=== PATIENT | male | born 1995 | race Asian ===

== ENCOUNTER 2017-12-19 17:07 | Emergency (ER) | payer MEDICAID, SELFPAY ==
[2017-12-19 17:07] VITALS: BP 143/95; PULSE 89; RESP 18; TEMP 37.3; O2SAT 98; BMI 24.9
[2017-12-19] MEDS: Ondansetron 4 MG/2 ML Vial IV (17:58)
[2017-12-19] MEDS: Ketorolac 30 MG/ML Syringe IV (17:58)
[2017-12-19] MEDS: 0.9% Normal Saline 1,000 ML 1000 ML IV (17:58)
[2017-12-19 18:13] LABS: Absolute Lymphocyte Count 1.17 X10^3/ul (0.83-4.51); Absolute Neutrophil Count 6.6 X10^3/uL (2.0-7.7); Basophil# 0.03 X10^3/uL; Basophil% 0.3 % (0-1); Eosinophil# 0.05 X10^3/uL; Eosinophils% 0.6 % (0-5); Hematocrit 45.7 % (40-54); Hemoglobin 16.2 g/dl (13.0-16.5); Lymphocyte # 1.17 X10^3/ul (4.0); Lymphocyte % 13.3 % (19-41); Mean Corp Hgb Conc 35.4 g/gl (32-36); Mean Corpuscular Hgb 31.7 pg (27.0-32.0); Mean Corpuscular Volume 89.4 fL (80-94); Monocyte# 0.93 X10^3/uL; Monocyte% 10.6 % (0-10); Neutrophil # 6.59 X10^3/uL (2.7-7.7); Neutrophil % 74.9 % (47-70); Platelet Count 272 K/mm3 (150-450); RBC Distribution Width CV 12.6 % (11.6-14.6); RBC Distribution Width SD 40.9 fl (35.1-43.9); Red Blood Count 5.11 M/mm3 (4.6-6.2); White Blood Count 8.8 K/mm3 (4.4-11.0)
[2017-12-19 18:14] LABS: POSITIVE COUNT NO; POSITIVE DIFFERENTIAL NO; POSITIVE MORPHOLOGY NO
[2017-12-19 18:26] LABS: AST(SGOT) 18 U/L (15-37); Alanine Aminotransfer ALT/SGPT 35 U/L (16-61); Albumin, Serum 4.1 g/dL (3.2-5.0); Alkaline Phosphatase 77 U/L (45-117); Anion Gap 8 (5-15); BUN 13 mg/dL (7-18); BUN/Creat Ratio 14.2 RATIO (10-20); Bilirubin, Direct 0.21 mg/dL (0.00-0.30); Calcium,Total 9.2 mg/dL (8.5-10.1); Chloride 104 mmol/L (98-107); Creatinine, Serum 0.91 mg/dL (0.70-1.30); EST Glomerular Filtration Rate 111 mL/min (>60); Est Glom Filt Rate - Afr Amer 134 mL/min (>60); Estimated Creatinine Clearance 145.12 ml/min; Globulin 3.9 g/dL (2.2-4.2); Glucose 93 mg/dL (74-106); Lipase 81 U/L (73-393); Potassium 3.6 mmol/L (3.5-5.1); Sodium Level 139 mmol/L (136-145)
--- NOTE | 2017-12-19 18:34 | ED.DCSUM_ITS ---
- ER Visit Summary Date of Service: 12/19/17 Chief Complaint: Vomiting and diarrhea History of Present Illness: The patient is a [address] Zëo park. He reports that he has been nauseated and vomited approximate 5 times. No blood in his emesis. He has had 2-3 episodes of diarrhea a day for the past 4 days. No blood in his stools. He has abdominal pain 7-10 is increased with eating. Patient reports he has not slept well for the past 4 days. 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 He states that typically he would drink Friday to Friday approximately half 1/5 each time. Reports his last drink was 4 days ago. He has never had withdrawal symptoms before. He also reports that he smoked marijuana 3 times a day and stop this 4 days ago. Physical Examination: Vitals: Stable. Afebrile. General: Well-nourished and well-developed. Head: Normocephalic atraumatic. Neck: Supple, no lymphadenopathy. No JVD. Nontender. Cardiovascular: Regular rate and rhythm. No murmurs. Respiratory: No respiratory distress. Clear to auscultation bilaterally. Abdominal: Soft, nontender, nondistended, normal bowel sounds. No guarding, rebound, or peritoneal signs. Back: Nontender. Extremities: Nontender, no edema. Skin: Normal color, no rash. Neurologic: Alert and oriented ?3. Cranial nerves II through XII are intact. Normal strength and sensation. Psych: Normal affect. Test Results: CBC is more for 7 neutrophils 75 lymphs lites of 13. Chem-7 is normal. LFTs normal. Lipase is normal. Emergency Department Course and Treatment: Patient was given a dose of Toradol and Zofran IV. He is resting comfortably. Treatment Plan: Had a prolonged discussion the patient that his symptoms of poor sleep and appetite are likely a sequela of stopping smoking marijuana. He will be placed on Zofran. Try to push fluids. Follow-up his primary care physician in 3-5 days if not improving. Return to the emergency department for any worsening symptoms. Disposition: To home in improved and stable condition. Impression: 1. Vomiting/diarrhea. This note was generated with [employer] dictation software. It may contain incorrect words, spelling, and punctuation that were not noted in review of the chart prior to signing ED Disposition - Plan for ED Patient: Disposition: Home or Assisted Living Chief Complaint: Substance Abuse Instructions: ED Vomiting Diarrhea Nonspecific Ad Prescriptions: Ondansetron [Zofran Odt] 4 mg PO Q8H PRN PRN #10 tablet PRN Reason: Nausea Referrals: Darinel Mayes MD [NON-STAFF] - 3-5 Days if not improving
[2017-12-19 18:45] VITALS: BP 127/71; PULSE 62; RESP 18; O2SAT 98
== END 2017-12-19 18:46 | disposition home or self-care (01) ==
PROVIDERS: Emergency Provider Emergency Medicine; Family Provider Pediatrics; PCP Pediatrics
DX: R11.2 Nausea with vomiting, unspecified (principal); R19.7 Diarrhea, unspecified; F12.11 Cannabis abuse, in remission; Z72.89 Other problems related to lifestyle
CPT/HCPCS: 80048; 80076; 83690; 85025; 96361; 96374; 96375; 99283; J7030; J2405

== ENCOUNTER 2018-09-18 05:20 | Emergency (ER) | payer MEDICAID, SELFPAY ==
[2018-09-18 05:20] VITALS: BP 137/75; PULSE 102; RESP 19; O2SAT 100
[2018-09-18 05:21] VITALS: BP 137/75; PULSE 95; RESP 17; TEMP 36.8; O2SAT 98; BMI 26.2
[2018-09-18 05:24] VITALS: O2SAT 98
[2018-09-18 05:28] VITALS: TEMP 36.8
--- NOTE | 2018-09-18 05:30 | ED.RN ---
PT WANTS AN IV TO GET FLUIDS, MADE AWARE. DR. BEE HAS NO FURTHER ORDERS AT THIS TIME, WILL CONTINUE TO MONITOR THE PT.
--- NOTE | 2018-09-18 05:31 | ED.DCSUM_ITS ---
- ER Visit Summary Date of Service: 09/18/18 Chief Complaint: Short of breath, myalgias History of Present Illness: The patient is a 23 M who is been sick for about 2 weeks. He reports subjective fevers, congestion, rhinorrhea, cough, muscle and joint aches. He feels short of breath. No nausea vomiting or diarrhea. He was seen by his physician 2 to 3 days ago and diagnosed with a sinus infection. Patient was given a prescription for Augmentin and prednisone. Physical Examination: Afebrile vitals are normal No distress Heart regular rate and rhythm Lungs are clear no rales rhonchi or wheezing Abdomen soft Alert Test Results: Not indicated Emergency Department Course and Treatment: Patient's presentation is consistent with bronchitis. Medical suspicion for pneumonia is low given normal vitals and clear lungs and he was already recently started on Augmentin regardless which would cover community-acquired pneumonia. Therefore I do not feel imaging is necessary at this time. He does not clinically appear dehydrated. He is clinically well-appearing with normal vitals. His lungs are clear. He was advised on supportive care. Patient was discharged. Treatment Plan: [] Disposition: Discharge Impression: Bronchitis This note was generated with [employer] dictation software. It may contain incorrect words, spelling, and punctuation that were not noted in review of the chart prior to signing ED Disposition - Plan for ED Patient: Referrals: Luciana Gonzales MD [Primary Care Provider] -
--- NOTE | 2018-09-18 05:31 | ED.DEP ---
ED Disposition - Plan for ED Patient: Instructions: Acute Bronchitis Referrals: Luciana Gonzales MD [Primary Care Provider] -
[2018-09-18 05:39] VITALS: BP 137/75; PULSE 98; RESP 17; TEMP 36.8; O2SAT 100
== END 2018-09-18 05:41 | disposition home or self-care (01) ==
LOC: ED 05:39
PROVIDERS: Emergency Provider Emergency Medicine; Family Provider Pediatrics; PCP Pediatrics
DX: J40 Bronchitis, not specified as acute or chronic (principal); K21.9 Gastro-esophageal reflux disease without esophagitis
CPT/HCPCS: 99282

== ENCOUNTER → 2020-02-02 12:30 | Outpatient (CLI) | payer MEDICAID, SELFPAY | PROVIDERS: PCP Family Medicine; Referring Provider Nurse Practitioner Primary Care; Visit Provider Nurse Practitioner Primary Care | DX: Z03.818 Encounter for observation for suspected exposure to other biological agents ruled out (principal) | CPT/HCPCS: 87635; C9803; U0003 ==

== ENCOUNTER 2021-07-05 21:20 | Observation (INO) | payer BC, MEDICAID, SELFPAY ==
[2021-07-05 21:21] VITALS: BP 141/94; PULSE 87; RESP 18; TEMP 36.6; O2SAT 97; BMI 22.4
--- NOTE | 2021-07-05 21:32 | EDS_ITS ---
HPI HPI - GI History of Present Illness Chief Complaint: Nausea/Vomiting/Diarrhea Detail of Chief Complaint: Abdominal pain with nausea, vomiting diarrhea that started today Informant: patient and family Abdominal Pain/Flank Pain Onset: Today Context: Sudden Onset Timing: Continuous and Waxes and wanes Quality: Aching and Cramping Location: Diffuse Current Severity: Mild Maximum Severity: Severe Worsened by: - (Vomiting and diarrhea) Relieved by: Nothing Nausea/Vomiting/Emesis GI Symptom: Positive for Nausea and Vomiting Onset: Today Quality: Negative for Blood streaks, Coffee ground and Hematemesis Episodes: 10 Diarrhea/Melena/Hematochezia GI Symptom: Positive for Diarrhea; Negative for Melena and Hematochezia Onset: Today Stool Quality: Positive for Watery and Mucous Severity: Severe Episodes: 9 Associated Symptoms Associated Symptoms: Negative for Dysuria, Frequency, Hematuria and Urgency Narrative Narrative: Patient is 25-year-old male who has history of IBS who presents with diffuse abdominal pain with nausea, vomiting diarrhea that started today. He has vomited more than 10 times. He has not noted blood or coffee-ground emesis. He has had 9 loose watery stools with significant mount of mucus without blood. He states this is different than when he has a IBS flare. There is no family history of Crohn's or ulcerative colitis. He has not been on antibiotics in the past month. He returned from [place] on Friday. No one else that went with him is ill. He denies fever or chills. He does report feeling cold. He denies headache, visual, ocular auditory symptoms. He denies cardiac or respiratory symptoms. He does endorse dry mouth, thirst but denies light headedness. Prior similar symptoms: No Recent Illness/Hospitalization: No PFSH PFS Medical History (Updated 07/05/21 @ 23:[address] Yves Loco MD) Irritable bowel syndrome Medical History no medical history Home Medications Omeprazole [Prilosec] 40 mg PO BID #60 capsule 03/29/16 [Rx Last Taken Unknown] dicyclomine 10 mg PO PRN PRN 12/19/17 [History Last Taken Unknown] ondansetron 4 mg PO Q8H PRN PRN #10 tab 12/19/17 [Rx Last Taken Unknown] Allergy/AdvReac Type Severity Reaction Status Date / Time cephalexin monohydrate Allergy Unknown Verified 07/05/21 21:23 [From Keflex] Surgical History no surgical history no surgical history Social History (Updated 07/05/21 @ 21:[address] Yves Loco MD) household members: family Smoking Status: Never smoker alcohol intake: never substance use type: does not use ROS ROS ED Constitutional Constitutional ED: Denies chills, fever(s), subjective, sweats or weight loss ENT ENT ED: Denies ear pain, rhinorrhea or sore throat Cardiovascular Cardiovascular: Denies chest pain or palpitations Respiratory/Chest Respiratory/Chest: Denies cough, dyspnea or dyspnea on exertion Gastrointestinal Gastrointestinal: Reports abdominal pain, diarrhea, nausea and vomiting; Denies constipation or melena Genitourinary Genitourinary ED: Denies dysuria, hematuria or urinary frequency Musculoskeletal Musculoskeletal: Denies arthralgias, back pain, myalgias or neck pain Integumentary Denies abscess, Abrasions or rash Neurologic Neurologic: Reports weakness; Denies headache(s) or paresthesias Endocrine Endocrinology: Denies polydipsia, polyphagia or polyuria Hematologic/Lymphatic Hematologic/Lymphatic: Denies anemia, easy bleeding or easy bruising EXAM Physical Exam Const Vital Signs: 07/05/21 21:21 Temperature 97.8 F Temperature Source Temporal Pulse Rate 87 Respiratory Rate 18 Blood Pressure 141/94 H Blood Pressure Mean 109 Pulse Ox 97 Oxygen Delivery Method Room Air Positive well nourished and well developed General Appearance ED: well developed, pallor and other Patient appears ill and pale. ; Negative for NAD HEENT Reports TM's clear and dry mucous membranes HEENT Narrative: Uvula midline. No exudate or erythema the posterior pharynx. normocephalic and atraumatic Tympanic Membrane ED: Yes TM's clear Mouth ED: Yes dry mucous membranes Mouth: dry mucous membranes Eyes PERRL and EOMs intact bilaterally General Eye ED: Negative for pale conjunctiva or scleral icterus Neck no lymphadenopathy, supple and no JVD Resp normal respiratory effort and clear to auscultation bilaterally Cardio regular rate, regular rhythm, S1 normal heart sound, S2 normal heart sound and no murmurs GI no masses; Negative for non-tender or non-distended Inspection: abdominal distention Auscultation: hypoactive bowel sounds; Negative for normoactive bowel sounds or hyperactive bowel sounds Palpation: soft and tender other (Minimal in all quadrants.); Negative for guarding, rigid, hepatomegaly, splenomegaly, mass, pulsatile mass or rebound tenderness present Back/Spine no CVA tenderness Lumbar Spine / Lower Back: Negative for lumbar spinal tenderness Extremity full ROM General Extremety ED: Negative for edema or tenderness General Extremity: Negative for edema Neuro CN's II-XII intact bilaterally and no sensory deficits noted Sensorium / Orientation: alert, oriented to person, oriented to place and oriented to time Motor Exam: strength 5/5 throughout Psych mental status grossly normal and thought process normal Skin no wounds General Skin Exam: pallor; Negative for jaundice Lesions: no lesions Rashes: no rashes MDM MDM MDM Narrative Medical decision making narrative: With complaints of nausea, vomiting and diarrhea suspect patient has a viral gastroenteritis. Clinically he appears dehydrated. 1 L of normal saline was ordered. BMP to assess renal function, anion gap and electrolytes, specifically potassium. Zofran was ordered for his nausea vomiting. Dicyclomine for his cramping pain and Imodium for his diarrhea. I was informed the patient use the restroom and had vomiting and diarrhea. Additional dose of Imodium was ordered and antiemetic. Patient received Reglan and morphine for his pain. Patient is actively vomiting complaining of severe pain. Patient's history and physical exam is consistent with gastroenteritis. Since he is continue to vomit will administer Haldol and Benadryl and hospitalist has been paged for 23-hour observation for intractable nausea, vomiting and diarrhea. Lab Data Attestation: I reviewed the patient's lab results. Lab results narrative: Blood sugar slightly elevated. Potassium is normal. CO2 and anion gap is normal. Labs: Laboratory Results - last 24 hr 07/05/21 21:37 Sodium 138 Potassium 4.0 Chloride 104 Carbon Dioxide 27.0 Anion Gap 7 BUN 16 Creatinine 0.98 Estim Creat Clear Calc 123.04 Est GFR (MDRD) Af Amer 120 Est GFR (MDRD) Non-Af 99 BUN/Creatinine Ratio 16.3 Glucose 149 H Calcium 9.9 Discharge Plan Triage Chief Complaint: Nausea/Vomiting/Diarrhea ED Provider: Yves Loco Dx/Rx/DC Orders Clinical Impression: Intractable vomiting with nausea, Diarrhea, Acute generalized abdominal pain, Acute hyperglycemia Prescriptions: No Action Omeprazole [Prilosec] 40 MG capsule 40 mg PO BID Qty: 60 RF: 0 dicyclomine 10 MG capsule 10 mg PO PRN PRN (Reason: Nausea) RF: 0 ondansetron 4 MG tablet 4 mg PO Q8H PRN PRN (Reason: Nausea) Qty: 10 RF: 0 Primary Care Provider: Darinel Mayes Referrals: Darinel Mayes MD [Primary Care Provider] - Disposition Disposition: Acute Care [facility]
[2021-07-05] MEDS: Dicyclomine 20 MG/2 ML Vial IM (21:46)
[2021-07-05] MEDS: Ondansetron 4 MG/2 ML Vial IV (21:46)
[2021-07-05] MEDS: 0.9% Normal Saline 1,000 ML 1000 ML IV (21:46)
[2021-07-05 22:28] LABS: Anion Gap 7 (5-15); BUN 16 mg/dL (7-18); BUN/Creat Ratio 16.3 RATIO (10-20); Calcium,Total 9.9 mg/dL (8.5-10.1); Chloride 104 mmol/L (98-107); Creatinine, Serum 0.98 mg/dL (0.70-1.30); EST Glomerular Filtration Rate 99 mL/min (>60); Est Glom Filt Rate - Afr Amer 120 mL/min (>60); Estimated Creatinine Clearance 123.04 ml/min; Glucose 149 mg/dL (74-106); Sodium Level 138 mmol/L (136-145)
[2021-07-05] MEDS: Metoclopramide 10 MG/2 ML Vial 5 MG IV (22:55)
[2021-07-05] MEDS: Morphine 4 MG/ML Syringe IV (23:09)
[2021-07-05] MEDS: DiphenhydrAMINE 50 MG/ML Syringe 25 MG IV (23:50)
[2021-07-05] MEDS: Haloperidol Lactate 5 MG/ML Vial 2 MG IV (23:50)
--- NOTE | 2021-07-05 23:50 | PCM.HP.STD ---
HPI - General General Date of Admission: 07/05/21 Date of Service: 07/05/21 Chief Complaint: Intractable N/V/D, abdominal cramping. HPI Narrative The patient is a 25 y/o M w/ PMHx: IBS, Intermittent Cannabis usage who presents to the [facility] ED on 07/05/21 with history of onset nausea, emesis (> 10 episodes), loose water stools (> 10 episodes) starting ~ 6-12 hours prior to ED arrival with associated generalized abdominal cramping, pain waxing and waning in waves with recent return from [place] Friday where he was with family with denied ill contacts from all recently present but again very short time window. Patient in the ED does report some mild dyspnea sensation but no recent cough, headache, fevers or chills. He does not appear short of breath but did discuss that this certainly could be because of the severity of his nausea and presentation but to be cautious noted plan for chest x-ray and Covid testing. Patient is not vaccinated against COVID. Work-up in the ED included T 97.6, heart rate 95, BP 128/69, respiratory rate 16, 100% on room air, BMP with glucose 149 otherwise not marked appearing, requested CBC and procalcitonin which will be obtained as had not been performed while patient was in the ED. In the ED patient administered a significant series of medications including Zofran, morphine, Reglan, Imodium, Haldol, diphenhydramine, Bentyl and a 1 L normal saline bolus. [facility] Medical History (Updated 07/06/21 @ 00:[address] Glenis Velazquez MD) Cannabis use disorder, mild, abuse Irritable bowel syndrome Medical History no medical history Home Medications Omeprazole [Prilosec] 40 mg PO BID #60 capsule 03/29/16 [Rx Last Taken Unknown] dicyclomine 10 mg PO PRN PRN 12/19/17 [History Last Taken Unknown] ondansetron 4 mg PO Q8H PRN PRN #10 tab 12/19/17 [Rx Last Taken Unknown] Allergy/AdvReac Type Severity Reaction Status Date / Time cephalexin monohydrate Allergy Unknown Verified 07/05/21 21:23 [From Keflex] Family History (Updated 07/06/21 @ 00:[address] Glenis Velazquez MD) Father Heart disease Myocardial infarction other (Patient denies any marked maternal family history including HD, DM, CA.) Surgical History (Updated 07/06/21 @ 00:[address] Glenis Velazquez MD) No history of previous surgery Surgical History no surgical history Social History (Updated 07/06/21 @ 00:[address] Glenis Velazquez MD) household members: family Smoking Status: Never smoker alcohol intake: never substance use type: marijuana ROS ROS Narrative Admission Review of Systems: CONSTITUTIONAL: No weight loss, fever, chills, + weakness or fatigue. HEENT: Eyes: No visual loss, blurred vision, double vision or yellow sclerae. Ears, Nose, Throat: No hearing loss, sneezing, congestion, runny nose or sore throat. SKIN: No rash or itching, lesions, wounds. CARDIOVASCULAR: No chest pain, chest pressure or chest discomfort, palpitations, edema, orthopnea, syncopal events. RESPIRATORY: + Shortness of breath, No cough or sputum, wheezing, hemoptysis. GASTROINTESTINAL: + Anorexia, nausea, vomiting, diarrhea, abdominal pain, No melena, BRBPR. GENITOURINARY: No dysuria, frequency, urgency or retention. NEUROLOGICAL: No headache, dizziness, syncope, paralysis, ataxia, numbness or tingling in the extremities, focal weakness, change in bowel or bladder control, seizure. MUSCULOSKELETAL: No muscle, back pain, joint pain or stiffness. HEMATOLOGIC: No anemia, bleeding or bruising. LYMPHATICS: No enlarged nodes. No history of splenectomy. PSYCHIATRIC: No history of depression or anxiety. ENDOCRINOLOGIC: No reports of sweating, cold or heat intolerance. No polyuria or polydipsia. ALLERGIES: No history of asthma, hives, eczema or rhinitis. Vital Signs Vital Signs Vital Signs: 07/05/21 21:21 Temperature 97.8 F Temperature Source Temporal Pulse Rate 87 Respiratory Rate 18 Blood Pressure 141/94 H Blood Pressure Mean 109 Pulse Ox 97 Oxygen Delivery Method Room Air Weight Weight: 165 lb Body Mass Index (BMI) 22.4 Physical Exam Narrative Physical Examination: General: Awake, alert, oriented x 3 and cooperative, seated upright in the ED bed, fatigued and ill-appearing. Skin: Normal color, normal turgor, no icterus, no cyanosis. HEENT: AT/NC, EOMI, PERRLA, moderately dry MM, no carotid bruits or JVD noted. Lungs: Diminished, greater bases, decreased effort, no rales, ronchi or wheezing. Heart: Currently regular rate and rhythm; no gallop, rub audible. Abdomen: Soft, NTTP during evaluation however following he notes abdominal cramping worsened, no marked distention, hypoactive bowel sounds, no obvious HSM. Extremities: No cyanosis, clubbing, or edema. Neurological: Patient awake, alert, oriented as noted, cognitive function intact; pupils equally reactive to light and accommodation, cranial nerves II-XII grossly normal, moving all 4 extremities, no focal deficits, strength moderately global decrease secondary to acute presentation. Psychiatric: Affect appears fatigued, ill-appearing, no acute evidence of depressive or anxiety feelings. Results Lab / Micro Data Result Diagrams: 07/05/21 21:37 07/05/21 21:37 Labs: Laboratory Results - last 24 hr 07/05/21 21:37: Sodium 138, Potassium 4.0, Chloride 104, Carbon Dioxide 27.0, Anion Gap 7, BUN 16, Creatinine 0.98, Estim Creat Clear Calc 123.04, Est GFR (MDRD) Af Amer 120, Est GFR (MDRD) Non-Af 99, BUN/Creatinine Ratio 16.3, Glucose 149 H, Calcium 9.9 Assessment & Plan Assessment/Plan (1) Intractable vomiting with nausea: (2) Diarrhea: QUALIFIERS: Diarrhea type: unspecified type Qualified Code(s): R19.7 - Diarrhea, unspecified (3) Acute generalized abdominal pain: PLAN: The patient is a 25 y/o M w/ PMHx: IBS, Intermittent Cannabis usage who presents to the [facility] ED on 07/05/21 with history of onset nausea, emesis (> 10 episodes), loose water stools (> 10 episodes) starting ~ 6-12 hours prior to ED arrival with associated generalized abdominal cramping, pain waxing and waning in waves with recent return from [place] Friday where he was with family with denied ill contacts from all recently present but again very short time window. #1. N/V/D, abdominal cramping potentially secondary to Acute gastroenteritis, unclear specific etiology complicated by history of IBS: We will admit to medical surgical floor, requested CBC and procalcitonin upon presentation, chest x-ray additionally pending given dyspnea complaints as well as Covid testing, continue aggressive hydration, will obtain c diff, stool cx, O+P if recurrent stools although patient was administered Imodium in the ED, will not start antibiotics at this time given unclear source pending stool studies as may be viral gastroenteritis. Anti-emetics, pain regimen PRN. Will maintain n.p.o. status except sips of water with medications until improving. Will maintain on IV PPI. #2. Hyperglycemia: Admission glucose notably elevated 149, hemoglobin A1c requested be cautious although do suspect potentially secondary to stress response. If patient hemoglobin A1c is elevated this certainly could also be causing #1. #3. Intermittent cannabis usage: UDS has been requested, given diarrhea and abdominal cramping low suspicion that this is cyclic vomiting syndrome. #4. GERD: We will maintain on IV PPI as noted. #5. DVT prophylaxis: Low risk, encourage ambulation. Charges/Coding Visit Charges OBSV E&M: 74952 Initial observation care L2
[2021-07-06 00:17] VITALS: BP 128/69; PULSE 95; RESP 16; TEMP 36.4; O2SAT 100
--- NOTE | 2021-07-06 00:30 | RAD_ITS ---
HISTORY: shortness of breath EXAMINATION/TECHNIQUE: XR Chest 1 View AP view COMPARISON: Two-view chest x-ray from 05/06/15 FINDINGS: LINES/DEVICES: None. LUNGS: No focal airspace consolidation. No pulmonary edema. No pleural effusion. No pneumothorax. MEDIASTINUM AND CARDIOVASCULAR STRUCTURES: Cardiac silhouette not enlarged. Central airways and mediastinal contour are unremarkable. BONES AND SOFT TISSUES: No acute findings. RAD/Chest 1 View (Portable) IMPRESSION: No radiographic evidence of acute cardiopulmonary disease. at 0058 Reported and signed by: Nicholas Linares MD Electronically Signed: Nicholas Linares MD at 0:57 EST ,
[2021-07-06 00:47] LABS: Procalcitonin 0.12 ng/mL (0.00-0.09)
[2021-07-06 01:03] LABS: Absolute Lymphocyte Count 0.75 X10^3/uL (0.83-4.51); Basophil# 0.03 X10^3/uL; Basophil% 0.3 % (0-1); Eosinophil# 0.27 X10^3/uL; Eosinophils% 2.6 % (0-5); Hematocrit 50.3 % (40-54); Hemoglobin 16.9 g/dL (13.0-16.5); Lymphocyte # 0.75 X10^3/ul (0.83-4.51); Lymphocyte % 7.1 % (19-41); Mean Corp Hgb Conc 33.6 g/dL (32-36); Mean Corpuscular Hgb 29.6 pg (27.0-32.0); Mean Corpuscular Volume 88.1 fL (80-94); Mean Platelet Vol. 9.9 fl (6.2-12.0); Monocyte# 0.48 X10^3/uL; Monocyte% 4.5 % (0-10); NRBC Flagged by Analyzer 0 % (0-5); Neutrophil % 85.3 % (47-70); Platelet Count 292 K/mm3 (150-450); RBC Distribution Width CV 12.2 % (11.6-14.6); RBC Distribution Width SD 39.3 fl (35.1-43.9); Red Blood Count 5.71 M/mm3 (4.6-6.2); White Blood Count 10.6 K/mm3 (4.4-11.0)
[2021-07-06 01:24] VITALS: BP 114/78; PULSE 58; RESP 16; TEMP 36.7; O2SAT 100
[2021-07-06 01:27] VITALS: BMI 22.9
[2021-07-06] MEDS: 0.9% Normal Saline 1,000 ML 150 ML IV ×2 (01:37→11:18)
[2021-07-06 05:55] VITALS: BP 131/73; PULSE 88; RESP 16; TEMP 37.1; O2SAT 95
[2021-07-06 06:21] LABS: Amphetamine Urine VISTA NEGATIVE (<1000 ng/mL); Barbiturate Urine VISTA NEGATIVE (< 200 ng/mL); Benzodiazepine Urine VISTA NEGATIVE (< 200 ng/mL); Cocaine Urine VISTA NEGATIVE (< 300 ng/mL); Ecstacy Urine VISTA NEGATIVE (< 500 ng/mL); Methadone Urine VISTA NEGATIVE (< 300 ng/mL); PCP Urine VISTA NEGATIVE (< 25 ng/mL); THC Urine VISTA POSITIVE (< 50 ng/mL); Vista UDS pH Range 7
[2021-07-06 06:24] LABS: Absolute Lymphocyte Count 0.36 X10^3/uL (0.83-4.51); Basophil# 0.02 X10^3/uL; Basophil% 0.2 % (0-1); Eosinophil# 0.02 X10^3/uL; Eosinophils% 0.2 % (0-5); Hematocrit 43.8 % (40-54); Hemoglobin 14.8 g/dL (13.0-16.5); Lymphocyte # 0.36 X10^3/ul (0.83-4.51); Lymphocyte % 3.7 % (19-41); Mean Corp Hgb Conc 33.8 g/dL (32-36); Mean Corpuscular Hgb 29.1 pg (27.0-32.0); Mean Corpuscular Volume 86.1 fL (80-94); Monocyte# 0.35 X10^3/uL; Monocyte% 3.6 % (0-10); NRBC Flagged by Analyzer 0 % (0-5); Neutrophil % 92.1 % (47-70); POSITIVE DIFFERENTIAL YES; Platelet Count 232 K/mm3 (150-450); RBC Distribution Width CV 12.1 % (11.6-14.6); Red Blood Count 5.09 M/mm3 (4.6-6.2); White Blood Count 9.8 K/mm3 (4.4-11.0)
[2021-07-06 06:29] LABS: Differential Indicated SCAN CRITERIA MET
[2021-07-06 06:57] LABS: ALB/GLOB Ratio 1.3 RATIO (0.9-2.4); AST(SGOT) 13 U/L (15-37); Alanine Aminotransfer ALT/SGPT 24 U/L (16-61); Albumin, Serum 3.7 g/dL (3.2-5.0); Alkaline Phosphatase 61 U/L (45-117); Anion Gap 6 (5-15); BUN 12 mg/dL (7-18); BUN/Creat Ratio 16.2 RATIO (10-20); Calcium,Total 8.7 mg/dL (8.5-10.1); Chloride 107 mmol/L (98-107); Creatinine, Serum 0.74 mg/dL (0.70-1.30); EST Glomerular Filtration Rate 137 mL/min (>60); Est Glom Filt Rate - Afr Amer 166 mL/min (>60); Globulin 2.9 g/dL (2.2-4.2); Glucose 101 mg/dL (74-106); Potassium 3.8 mmol/L (3.5-5.1); Protein, Total 6.6 g/dL (6.4-8.2); Sodium Level 137 mmol/L (136-145)
[2021-07-06 07:11] LABS: Differential Comment SCANNED
[2021-07-06 07:45] LABS: Hemoglobin A1c 5.3 % (3.8-5.6)
[2021-07-06 09:29] VITALS: BP 116/68; PULSE 97; RESP 16; TEMP 37.6; O2SAT 100
[2021-07-06 10:34] VITALS: BP 105/79; PULSE 107; RESP 18; TEMP 37.1; O2SAT 100
--- NOTE | 2021-07-06 10:44 | PCM.DC ---
Discharge Instructions Diet Discharge Diet: Soft diet (Soft diet for 3 days and then resume solid food diet) Activity Discharge Activity: Return to Normal Activity and May Not Drive (For 2 days) Dressing / Incision Call your doctor if you observe: Fever of 101 or Higher, Coldness, Increased Pain, Numbness or Tingling, Change in Color, Inability to urinate, Inability to have a bowel movement, Shortness of breath, Dizziness, Fainting spells, Swelling in the ankles, Chest pain, Prolonged hiccupping, Increased palpitations (irregular heartbeat), Calf discomfort and Uncontrolled pain Follow Up Care Test Results: Test results from this visit will be discussed in further detail at your follow-up appointment, if applicable. Discharge Plan Admission Admit Date/Time: 07/05/21 23:51 Primary Reason for Your Visit: IBS diarrhea predominant Attending Provider: Kyle Thomason Primary Care Provider: Darinel Mayes Discharge Orders/Prescriptions Prescriptions: New cyclobenzaprine 5 mg Tablet 5 mg PO TID PRN (Reason: skeletal muscle spasm) Qty: 30 RF: 0 ondansetron 4 mg tablet,disintegrating 4 mg PO Q8H PRN (Reason: nausea and vomiting) Qty: 30 RF: 0 Continued Omeprazole [Prilosec] 40 MG capsule 40 mg PO BID Qty: 60 RF: 0 Changed dicyclomine 10 MG capsule 20 mg PO 4X/DAY PRN PRN (Reason: Nausea) Qty: 0 RF: 0 Referrals / Follow Up: Darinel Mayes MD [Primary Care Provider] - Disposition Disposition (needs filled in before D/C Order can be placed): Home, Self Care
--- NOTE | 2021-07-06 11:00 | NURSING ---
Pt mother came to nurse station stated my son in 20 is having pain and cramping. Upon entering room sitting on the bed holding his left arm saying that he is having cramping all over. Dr Thomason was made aware. The mother is requesting that Dr Thomason come see the pt and Dr Thomason was made aware of that as well. Continuing to monitor pt. Pt was asked about any substance abuse and he denied taking any medications or used any substances.
[2021-07-06] MEDS: Dicyclomine 20 MG/2 ML Vial IM (11:13)
[2021-07-06 11:21] LABS: GGTP 21 U/L (15-85)
[2021-07-06 11:53] LABS: Phosphorus 3.5 mg/dL (2.5-4.9)
[2021-07-06] MEDS: Baclofen 10 MG Tablet 5 MG PO (12:10)
[2021-07-06] MEDS: Dicyclomine 10 MG Capsule 20 MG PO ×2 (12:10→15:17)
[2021-07-06 12:38] LABS: Alcohol, Blood (Medical)-Serum < 3.0 mg/dL
--- NOTE | 2021-07-06 15:26 | NURSING ---
pt called out to state he was having more cramping. upon entering the room pt was sitting on the side of the bed complaining of stomach cramps. Bentyl given as ordered will continue to monitor pt.
--- NOTE | 2021-07-06 16:12 | PCM.DC.SUM ---
Providers Date of Admission: 07/05/21 Date of Discharge: 07/06/21 Primary Care Physician: Dr. Darinel Mayes MD Reason For Visit: N/V/D, GASTRO Diagnosis Discharge Diagnosis (1) Intractable vomiting with nausea: Status: Acute Code(s): R11.2 - Nausea with vomiting, unspecified (2) Diarrhea: Status: Acute Code(s): R19.7 - Diarrhea, unspecified Qualifiers: Diarrhea type: unspecified type Qualified Code(s): R19.7 - Diarrhea, unspecified (3) Acute generalized abdominal pain: Status: Acute Code(s): R10.84 - Generalized abdominal pain Medications at Discharge Home Medications Omeprazole [Prilosec] 40 mg PO BID #60 capsule 03/29/16 cyclobenzaprine 5 mg PO TID PRN #30 tab 07/06/21 dicyclomine 20 mg PO 4X/DAY PRN PRN #0 cap 07/06/21 ondansetron 4 mg PO Q8H PRN #30 tab 07/06/21 Hospital Course Summary of Care Provided Hospital Course: This is a 25-year-old with history of IBS?constipation predominant on intermittent cannabis use Dayan was admitted for severe nausea, vomiting and diarrhea more than 10 episodes on 07/05/2021. Patient had recent trip to [place] and had seafood there. Patient was admitted to the [facility] floor. Nausea, vomiting and diarrhea resolved in the morning and he did not had any stool sample for testing. Does not have fever chills dyspnea or cough. COVID-19 PCR negative. Vitals normal. On exam: Abdomen soft, nontender nondistended. Patient has a skeletal muscle spasm and was given baclofen and Flexeril. U tox was positive for opioids. Mild event discussion with 180 caseworker protective services nurse if patient wants help but he refuses opioid use disorder. I had discussion with the mother and her sister who is a deliverer pharmacy. The patient lives with her mother denies any history of opioid use. Clinically does not seem to be pancreatitis. Lipase ordered. Pending. Overall clinically patient feels better. Advised to follow-up with meat press operator Dr. Marsh for work-up of IBS, celiac disease, tropical sprue, Whipple's disease or other malabsorption disease. Discharge medication reconciliation done. Discharge follow-up instructions completed. Discharge process discussed with the patient and all questions were answered to patient's satisfaction. Total time spent, exact 35 minutes on discharge meds reconciliation, examination, coordination of care with nurses and ancillary staff, review of imaging and blood test and discussion with the patient on follow-up instructions. Physical Exam Narrative Patient nausea vomiting and diarrhea has resolved by the morning today. Still complaining of abdominal spasms. He had severe muscle spasm of left upper extremity, right shoulder area. U tox was positive for opioids but he denies [id number], prescribed or restrictive opioid medication. Patient has history of IBS alternating constipation and diarrhea though constipation predominant. Electrolytes in normal limit. General: Alert, Oriented x3, Cooperative HEENT: Atraumatic, PERRLA, EOMI, Normocephalic Oral: No Gingival or Mucosal Lesions/ Ulcerations Neck: Supple, No JVD, Negative Carotid Bruits Lungs: Air entry equal in bilateral lung bases. No crepitation/rhonchi Cardiovascular: Regular rate, Regular Rhythm, Normal S1, Normal S2, No murmurs Abdomen: Bowel Sounds Present, Soft, Non Tender, Non-Distended : No renal angle tenderness. No suprapubic tenderness. Extremities: No edema, Capillary Refill Less than 3 Seconds Skin: No rashes, No breakdown Musculoskeletal: No Tenderness to Palpation of Joints or Extremities Neurological: Cranial nerves II-XII grossly intact, DTR 2+/4 and Symmetrical, Neuro grossly intact Psych/Mental Status: Flat affect. Weight / BMI Weight Weight: 169 lb Body Mass Index (BMI) 22.9 ABG / Lab / Microbiology Data Result Diagrams: 07/06/21 05:40 07/06/21 05:40 Laboratory: Laboratory Results - last 24 hr 07/05/21 21:37: Sodium 138, Potassium 4.0, Chloride 104, Carbon Dioxide 27.0, Anion Gap 7, BUN 16, Creatinine 0.98, Estim Creat Clear Calc 123.04, Est GFR (MDRD) Af Amer 120, Est GFR (MDRD) Non-Af 99, BUN/Creatinine Ratio 16.3, Glucose 149 H, Calcium 9.9 07/05/21 21:37: WBC 10.6, RBC 5.71, Hgb 16.9 H, Hct 50.3, MCV 88.1, MCH 29.6, MCHC 33.6, RDW Std Deviation 39.3, RDW Coeff of Daisha 12.2, Plt Count 292, MPV 9.9, Immature Gran % (Auto) 0.200, Neut % (Auto) 85.3 H, Lymph % (Auto) 7.1 L, Meriwether % (Auto) 4.5, Eos % (Auto) 2.6, Baso % (Auto) 0.3, Absolute Neuts (auto) 9.0 H, Absolute Lymphs (auto) 0.75 L, Nucleated RBC % 0 07/06/21 00:12: Procalcitonin 0.12 H 07/06/21 00:50: COVID-19 (ISABELLE) Not Detected 07/06/21 05:40: WBC 9.8, RBC 5.09, Hgb 14.8, Hct 43.8, MCV 86.1, MCH 29.1, MCHC 33.8, RDW Std Deviation 38.0, RDW Coeff of Daisha 12.1, Plt Count 232, MPV 9.0, Immature Gran % (Auto) 0.200, Neut % (Auto) 92.1 H, Lymph % (Auto) 3.7 L, Meriwether % (Auto) 3.6, Eos % (Auto) 0.2, Baso % (Auto) 0.2, Absolute Neuts (auto) 9.0 H, Absolute Lymphs (auto) 0.36 L, Nucleated RBC % 0, Differential Comment SCANNED 07/06/21 05:40: Sodium 137, Potassium 3.8, Chloride 107, Carbon Dioxide 24.0, Anion Gap 6, BUN 12, Creatinine 0.74, Estim Creat Clear Calc 166.90, Est GFR (MDRD) Af Amer 166, Est GFR (MDRD) Non-Af 137, BUN/Creatinine Ratio 16.2, Glucose 101, Calcium 8.7, Total Bilirubin 1.00, AST 13 L, ALT 24, Alkaline Phosphatase 61, Total Protein 6.6, Albumin 3.7, Globulin 2.9, Albumin/Globulin Ratio 1.3 07/06/21 05:56: Urine Opiates Screen POSITIVE H, Urine Methadone Screen NEGATIVE, Ur Barbiturates Screen NEGATIVE, Ur Phencyclidine Scrn NEGATIVE, Ur Amphetamines Screen NEGATIVE, MDMA (Ecstasy) Screen NEGATIVE, U Benzodiazepines Scrn NEGATIVE, Urine Cocaine Screen NEGATIVE, U Cannabinoids Screen POSITIVE H, Ur Drug Screen Comment Radiography Diagnostic Testing: Radiology Impression Chest X-Ray 07/06/21 00:30 IMPRESSION: No radiographic evidence of acute cardiopulmonary disease. at 0058 Reported and signed by: Nicholas Linares MD Electronically Signed: Nicholas Linares MD at 0:57 EST , Meaningful Use Info Meaningful Use Diagnoses (Choose all that apply): None applicable Discharge Plan Admission Admit Date/Time: 07/05/21 23:51 Primary Reason for Your Visit: IBS diarrhea predominant Attending Provider: Kyle Thomason Primary Care Provider: Darinel Mayes Discharge Orders/Prescriptions Prescriptions: New cyclobenzaprine 5 mg Tablet 5 mg PO TID PRN (Reason: skeletal muscle spasm) Qty: 30 RF: 0 ondansetron 4 mg tablet,disintegrating 4 mg PO Q8H PRN (Reason: nausea and vomiting) Qty: 30 RF: 0 Continued Omeprazole [Prilosec] 40 MG capsule 40 mg PO BID Qty: 60 RF: 0 Changed dicyclomine 10 MG capsule 20 mg PO 4X/DAY PRN PRN (Reason: Nausea) Qty: 0 RF: 0 Referrals / Follow Up: Darinel Mayes MD [Primary Care Provider] - Disposition Disposition (needs filled in before D/C Order can be placed): Home, Self Care Charges/Coding Visit Charges Inpatient E&M: 11921 Disch Hosp
[2021-07-06 16:19] LABS: Lipase 54 U/L (73-393)
[2021-07-06 16:38] VITALS: BP 116/76; PULSE 78; RESP 16; TEMP 37.1; O2SAT 100
== END 2021-07-06 16:46 | disposition home or self-care (01) ==
LOC: ED 23:48 → MS3 07-06 00:08
PROVIDERS: Admitting Provider Family Medicine; Emergency Provider Emergency Medicine; PCP Family Medicine; Visit Provider Internal Medicine
DX: K58.2 Mixed irritable bowel syndrome (principal); R11.2 Nausea with vomiting, unspecified; R19.7 Diarrhea, unspecified; R73.9 Hyperglycemia, unspecified; R10.84 Generalized abdominal pain; Z20.822 Contact with and (suspected) exposure to COVID-19; F12.90 Cannabis use, unspecified, uncomplicated; K92.1 Melena; Z79.899 Other long term (current) drug therapy; K21.9 Gastro-esophageal reflux disease without esophagitis
CPT/HCPCS: 36415; 71045; 80048; 80053; 80307; 82077; 82977; 83036; 83690; 83735; 84100; 84145; 85025; 87635; 96361; 96365; 96366; 96372; 96375; 99218; 99285; J7030; A4216; G0378; J2405; U0003; U0005

== ENCOUNTER 2022-05-30 15:48 | Emergency (ER) | payer BC, MEDICAID, SELFPAY ==
[2022-05-30 15:51] VITALS: BP 89/48; PULSE 75; RESP 20; TEMP 36.6; O2SAT 100; BMI 25.3
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
[2022-05-30] MEDS: Morphine 4 MG/ML Syringe IV ×2 (16:25→20:05)
[2022-05-30] MEDS: Diphth,Pertuss(Acell),Tet Vac 0.5 ML Vial IM (16:25)
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
[2022-05-30 17:11] LABS: Hematocrit 43.9 % (40-54); Hemoglobin 14.8 g/dL (13.0-16.5); Mean Corp Hgb Conc 33.7 g/dL (32-36); Mean Corpuscular Hgb 29.2 pg (27.0-32.0); Mean Corpuscular Volume 86.8 fL (80-94); Mean Platelet Vol. 9.3 fl (6.2-12.0); Platelet Count 262 K/mm3 (150-450); RBC Distribution Width SD 38.5 fl (35.1-43.9); Red Blood Count 5.06 M/mm3 (4.6-6.2)
[2022-05-30] MEDS: Clindamycin 600 MG/50 ML BAG 100 MG IV (17:27)
[2022-05-30 17:28] VITALS: BP 133/88; PULSE 108; RESP 18; O2SAT 98
[2022-05-30] MEDS: Ondansetron 4 MG/2 ML Vial IV (18:03)
[2022-05-30] MEDS: morphine 10 MG/ML Syringe IV (18:03)
[2022-05-30] MEDS: Lidocaine 1% (30 ml sdv) 30 ML Vial INFILT (18:04)
[2022-05-30 18:05] VITALS: BP 132/78; PULSE 103; RESP 18; O2SAT 98
[2022-05-30 19:45] VITALS: BP 113/74; PULSE 98; RESP 18; O2SAT 93
== END 2022-05-30 19:45 | disposition home or self-care (01) ==
PROVIDERS: Emergency Provider Emergency Medicine; PCP Family Medicine; Visit Provider Emergency Medicine
DX: S62.331A Displaced fracture of neck of second metacarpal bone, left hand, initial encounter for closed fracture (principal); S61.432A Puncture wound without foreign body of left hand, initial encounter; F12.90 Cannabis use, unspecified, uncomplicated; Z79.899 Other long term (current) drug therapy; Z23 Encounter for immunization; W32.0XXA Accidental handgun discharge, initial encounter
CPT/HCPCS: 12002; 73130; 85027; 90715; 96365; 96372; 96375; 96376; 99285; J7030; A4216; J2405